=== PATIENT | male | born 1995 | race Caucasian/White ===

== ENCOUNTER 2016-10-20 09:58 | Emergency (ER) | payer BC, OTHER ==
[~2016-10-20] VITALS: Ht 172.7 cm; Wt 79.2 kg
[2016-10-20 10:05] VITALS: TEMP 36.7; Ht 172.7 cm; Wt 79.2 kg
--- NOTE | 2016-10-20 10:49 | EMERGENCY ROOM VISIT NOTE ---
ED Visit Note First contact with patient: 10:10 CHIEF COMPLAINT: Mid back pain HISTORY OF PRESENT ILLNESS: This 21-year-old male patient presents to the emergency department ambulatory complaining of pain in mid back which began today at work when he was lifting a sneeze guard in front of him while working at [employer] and felt a popping sensation in his back, particularly the left paraspinous area. The pain was gradual in onset, is now constant and worse with movement. The patient notes the pain as spasmodic and a 5.5/10. The patient has taken Tylenol relief of the pain. The patient denies any bowel or bladder difficulties. There has been no arm numbness or weakness, and no change in sensation. No nausea or vomiting or abdominal pain. No chest pain or shortness of breath. The patient has had prior back injuries. REVIEW OF SYSTEMS: No dysuria or increased urinary frequency. A 6 system review of systems was completed and pertinent positives and negatives are in the HPI. ALLERGIES: Cephalosporin MEDICATIONS: None PMH: None SOCIAL HISTORY: The patient is employed. He does not smoke. PHYSICAL EXAM: VITALS: Vitals are noted on the nurse's note and reviewed by myself. No abnormalities noted. GENERAL: This is a 21-year-old male, in no acute distress, nondiaphoretic, well- developed well-nourished. SKIN: The skin was without rashes, erythema, edema, or bruising. Capillary refill less than 2 seconds. NECK: Supple without nuchal rigidity. No cervical spine tenderness. No paraspinous muscle tenderness. HEART: Regular rate and rhythm without murmurs gallops or rubs. LUNGS: Clear to auscultation bilaterally without wheezes, rales or rhonchi. MUSCULOSKELETAL: No muscle atrophy, erythema, or edema noted of the back. There is no tenderness over the lumbar spinous processes. There is no tenderness over the paraspinous muscles. There is mild tenderness over the thoracic spine and left paraspinous muscles. There are moderate left-sided muscle spasms present. The patient is slow to move around with maximum tenderness with extension of the arms. NEURO: Patient was alert and oriented to person place and time. Normal sensation to light and sharp touch. Deep tendon reflexes 2+ in the upper extremities. Dorsalis pedis pulse 2+ bilaterally. EMERGENCY DEPARTMENT COURSE: The patient was seen and examined. Previous visits were reviewed. The patient presents with mid back pain after stretching and reaching forward. He felt a popping sensation and has muscle spasm on examination. An x-ray was obtained and suggests Schmorl's nodes or bone island. The patient was advised of this and to follow with his family doctor. He declined pain medication on the emergency department. He will be given prescriptions for Flexeril and Motrin. He was given a note for work. He should return to the ER with any worsening symptoms. THORACIC SPINE 3 VIEWS HISTORY: mid back pain COMPARISON: None. FINDINGS: There is no fracture. No subluxation. Mild degenerative disc disease within the mid thoracic spine. A few small Schmorl's nodes within the mid thoracic spine. There is 9 mm there are focus within the T7 vertebral body. IMPRESSION: 1. No acute fracture identified within the thoracic spine. 2. Mild degenerative disc disease within the mid thoracic spine. 3. A nonspecific 9 mm cirrhotic focus within the T7 vertebral body. This favors a bone island in the absence of a known malignancy. Current/Historical Medications Scheduled Cyclobenzaprine Hcl (Flexeril), 10 MG PO TID Scheduled PRN Ibuprofen Tab (Motrin), 800 MG PO Q8H PRN for Pain Allergies Coded Allergies: Cephalosporins (Unverified Allergy, Unknown, 10/20/16) Vital Signs Date Time Temp Pulse Resp B/P Pulse Ox O2 Delivery O2 Flow Rate FiO2 10/20/16 11:25 63 18 143/93 100 Room Air 10/20/16 10:05 36.7 77 16 146/95 97 Room Air Departure Information Impression Primary Impression: Thoracic myofascial strain Dispostion Home / Self-Care Condition GOOD Prescriptions Ibuprofen Tab (MOTRIN) 800 Mg Tab 800 MG PO Q8H Y for Pain for 7 Days, #21 TAB Prov: Oneida Nicholas PA-C 10/20/16 Cyclobenzaprine Hcl (FLEXERIL) 10 Mg Tab 10 MG PO TID for 7 Days, #21 TAB Prov: Oneida Nicholas PA-C 10/20/16 Referrals Capo Starks M.D. (PCP) Forms HOME CARE DOCUMENTATION FORM, IMPORTANT VISIT INFORMATION, Work Instructions Return To Work: 3 days Patient Instructions ED Sprain Thoracic Spine, [facility] Additional Instructions Motrin 600 mg every 6-8 hours Flexeril every 8 hours as needed for muscle spasm. Do not drive or operate machinery while taking the Flexeril as it may make you sleepy. Contact your family doctor today or tomorrow to schedule a follow-up appointment for further evaluation and management. This likely represents a thoracic strain. There was a question of a bone island in T7. This should be followed up with your family doctor. Return with any worsening symptoms, numbness, tingling. Problem Qualifiers Primary Impression: Thoracic myofascial strain Encounter type: initial encounter Qualified Codes: S29.019A - Strain of muscle and tendon of unspecified wall of thorax, initial encounter
[2016-10-20 11:25] VITALS: BP 143/93; PULSE 63; O2SAT 100
--- NOTE | 2016-10-20 11:27 | DIAGNOSTIC IMAGING REPORT ---
THORACIC SPINE 3 VIEWS HISTORY: mid back pain COMPARISON: None. FINDINGS: There is no fracture. No subluxation. Mild degenerative disc disease within the mid thoracic spine. A few small Schmorl's nodes within the mid thoracic spine. There is 9 mm there are focus within the T7 vertebral body. IMPRESSION: 1. No acute fracture identified within the thoracic spine. 2. Mild degenerative disc disease within the mid thoracic spine. 3. A nonspecific 9 mm cirrhotic focus within the T7 vertebral body. This favors a bone island in the absence of a known malignancy. Electronically signed by: Olivier Wilson M.D. 10/20/2016 11:24 AM Dictated Date/Time: 10/20/2016 11:03 AM
[2016-10-20] MEDS ORDERED: IBUP-1451 PO (11:47)
[2016-10-20] MEDS ORDERED: CYCL10TA6 PO (11:47)
== END 2016-10-20 12:07 | disposition home or self-care (01) ==
LOC: C.EDB 10:01 → C.EDA 12:07
DX: S29.012A Strain of muscle and tendon of back wall of thorax, initial encounter (principal); X50.9XXA Other and unspecified overexertion or strenuous movements or postures, initial encounter; Y99.0 Civilian activity done for income or pay